=== PATIENT | male | born 1995 | race Caucasian/White ===

== ENCOUNTER 2019-11-25 21:03 | Emergency (ER) | payer BC ==
[~2019-11-25] VITALS: Ht 167.6 cm; Wt 70.5 kg
[2019-11-25 21:09] VITALS: Ht 167.6 cm; Wt 70.5 kg
[2019-11-25] MEDS ORDERED: ULTRAM50 MG PO (21:58)
[2019-11-25 22:09] VITALS: BP 107/61
== END 2019-11-25 22:08 | disposition home or self-care (01) ==
LOC: D.ER 21:03
DX: S46.001A Unspecified injury of muscle(s) and tendon(s) of the rotator cuff of right shoulder, initial encounter (principal); M25.511 Pain in right shoulder; R53.1 Weakness